=== PATIENT | female | born 1980 | race Two or more races ===

== ENCOUNTER 2019-06-10 08:26 | Emergency (ER) | payer OTHER ==
[2019-06-10 08:31] VITALS: TEMP 98.4; BMI 27.8
[2019-06-10] MEDS ORDERED: SODIUM CHLORIDE 1,000 ML IV STA (09:11)
[2019-06-10 09:49] LABS: BASO % 0.5 % (0-2.0); EOS % 0.7 % (0-4.5); HEMATOCRIT 39.9 % (32.4-45.2); LYMPH % 23.2 % (8-40); MCH 23.5 pg (25.7-33.7); MCHC 32.5 g/dl (32.0-36.0); MEAN CELL VOLUME 72.5 fl (80-96); MEAN PLT VOLUME 10.5 fl (7.5-11.1); MONO % 6.4 % (3.8-10.2); NEUT % 69.2 % (42.8-82.8); PLATELET COUNT 272 K/MM3 (134-434); RBC 5.51 M/mm3 (3.60-5.2); RDW 15.7 % (11.6-15.6)
[2019-06-10 10:02] LABS: INR 1.08 (0.83-1.09); PROTHROMBIN TIME (PATIENT) 12.7 SEC (9.7-13.0)
[2019-06-10 10:21] LABS: ALBUMIN 3.7 g/dl (3.4-5.0); ALK PHOS 118 U/L (45-117); ANION GAP 6 MMOL/L (8-16); BILIRUBIN,TOTAL 0.4 mg/dL (0.2-1); BLOOD UREA NITROGEN 10.6 mg/dL (7-18); CALCIUM 8.7 mg/dL (8.5-10.1); CHLORIDE 104 mmol/L (98-107); CO2 29 mmol/L (21-32); CREATININE 0.7 mg/dL (0.55-1.3); GLUCOSE,RANDOM 87 mg/dL (74-106); POTASSIUM 4.3 mmol/L (3.5-5.1); SGOT/AST 24 U/L (15-37); SGPT/ALT 26 U/L (13-61); SODIUM 139 mmol/L (136-145)
[2019-06-10 12:09] LABS: EPI CELLS 5.7 /HPF (0-5/HPF); HYALINE CASTS 3 /lpf (0-8); URINE APPEARANCE CLEAR; URINE BACTERIA 297.9 /hpf (NEGATIVE); URINE BILIRUBIN NEGATIVE (NEGATIVE); URINE COLOR YELLOW; URINE GLUCOSE (UA) NEGATIVE (NEGATIVE); URINE KETONE NEGATIVE (NEGATIVE); URINE LEUK ESTERASE NEGATIVE (NEGATIVE); URINE NITRITE NEGATIVE (NEGATIVE); URINE PROTEIN NEGATIVE (NEGATIVE); URINE RBC 1 /hpf (0-4); URINE UROBILINOGEN 0.2 mg/dL (0.2-1.0); URINE WBC 2 /hpf (0-5)
--- NOTE | 2019-06-10 12:09 | PDOC ---
Documentation entered by Bernardo Edwards SCRIBE, acting as scribe for Servando Ritchie MD. Servando Ritchie MD: This documentation has been prepared by the Grace gordillo Elijah, SCRIBE, under my direction and personally reviewed by me in its entirety. I confirm that the documentation accurately reflects all work, treatment, procedures, and medical decision making performed by me. History of Present Illness - General Chief Complaint: Pain Stated Complaint: ABD PAIN/Etopic Time Seen by Provider: 06/10/19 08:51 History Source: Patient Exam Limitations: No Limitations - History of Present Illness Initial Comments: 06/10/19 09:30 Patient is a 38 year old female (A1) with a significant past medical history of HTN who presents to the ED with suprapubic abdominal pain that began yesterday and associates minimal vaginal bleeding. Patient notes that she was recently seen at [facility] x2 weeks ago, when she received a US and blood work. Patient was told she had an ectopic , blood work was negative, and if she had any pain to go to the ED prompting the visit today. Denies Fever, Chills. Allergies: NKA Past History - Past Medical History Allergies/Adverse Reactions: Allergies Allergy/AdvReac Type Severity Reaction Status Date / Time No Known Allergies Allergy Verified 06/10/19 08:31 Home Medications: Ambulatory Orders Ferrous Sulfate [Feosol] 325 mg PO BID #60 tab 06/17/14 Labetalol HCl [Normodyne -] 100 mg PO BID #60 tablet 06/17/14 Asthma: No Cancer: No Cardiac Disorders: No COPD: No Diabetes: Yes HTN: No Seizures: No Thyroid Disease: No - Reproductive History (#): 4 Para: 2 Spontaneous : 1 - Suicide/Smoking/Psychosocial Hx Smoking History: Never smoked Have you smoked in the past 12 months: No Information on smoking cessation initiated: No Hx Alcohol Use: No Drug/Substance Use Hx: No Substance Use Type: None Hx Substance Use Treatment: No Review of Systems - Review of Systems Comments:: 06/10/19 09:30 CONSTITUTIONAL: No fever, no chills, no fatigue EYES: No visual changes ENT: No ear pain, no sore throat CARDIOVASCULAR: No chest pain, no palpitations RESPIRATORY: No cough, no SOB GI: +abdominal pain, no nausea, no vomiting, no constipation, no diarrhea GENITOURINARY: No dysuria, no frequency, no hematuria VAGINAL: +Some Vaginal Bleeding MUSKULOSKELETAL: No backpain, no joint pain, no myalgias SKIN: No rash NEURO: No headache *Physical Exam - Vital Signs Last Vital Signs Temp Pulse Resp BP Pulse Ox 98.4 F 75 18 159/95 100 06/10/19 08:29 06/10/19 08:29 06/10/19 08:29 06/10/19 08:29 06/10/19 08:29 - Physical Exam Comments: 06/10/19 09:30 CONSTITUTIONAL: Well-appearing; well-nourished; in no apparent distress HEAD: Normocephalic; atraumatic EYES: PERRL; EOM intact ENMT: External appears normal; normal oropharynx NECK: Supple; non-tender; no cervical lymphadenopathy CARD: Normal S1, S2; no murmurs, rubs, or gallops RESP: Normal chest excursion with respiration; breath sounds clear and equal bilaterally; no wheezes, rhonchi, or rales ABD: +Mild Suprapubic tenderness to palpation. No Rebound, No Guarding EXT: Normal ROM in all four extremities; non-tender to palpation; distal pulses intact SKIN: Warm, dry, no rash NEURO: No focal neurological deficiencies. ED Treatment Course - LABORATORY CBC & Chemistry Diagram: 06/10/19 09:20 06/10/19 09:20 - ADDITIONAL ORDERS Additional order review: Laboratory Results 06/10/19 06/10/19 06/10/19 09:20 09:20 09:20 PT with INR 12.70 INR 1.08 Sodium 139 Potassium 4.3 Chloride 104 Carbon Dioxide 29 Anion Gap 6 L BUN 10.6 Creatinine 0.7 Est GFR (CKD-EPI)AfAm 128.28 Est GFR (CKD-EPI)NonAf 110.69 Random Glucose 87 Calcium 8.7 Total Bilirubin 0.4 AST 24 ALT 26 Alkaline Phosphatase 118 H Total Protein 8.0 Albumin 3.7 Beta HCG, Quant < 1.0 Blood Type O NEGATIVE Antibody Screen Negative 06/10/19 09:20 RBC 5.51 H MCV 72.5 L MCHC 32.5 RDW 15.7 H D MPV 10.5 Neutrophils % 69.2 Lymphocytes % 23.2 D Monocytes % 6.4 Eosinophils % 0.7 Basophils % 0.5 - RADIOLOGY Radiology Studies Ordered: Category Date Time Status TRANSVAGINAL ULTRASOUND US [US] Stat Ultrasound 06/10/19 10:42 Completed - Medications Given in the ED: ED Medications Discontinued Medications Generic Name Dose Route Start Last Admin Trade Name [place]q PRN Reason Stop Dose Admin Sodium Chloride 1,000 mls @ 1,000 mls/hr 06/10/19 09:11 06/10/19 09:29 Normal Saline - IV 06/10/19 10:10 1,000 mls/hr ASDIR STA Administration Medical Decision Making - Medical Decision Making 06/10/19 12:07 Early April 2019 presents with minimal suprapubic discomfort, mild vaginal bleeding and questionable history of ectopic diagnosed 2 weeks previously at an outpatient facility. In the ER, patient is awake and alert, well-appearing, hemodynamically stable. Serial abdominal exams revealed minimal suprapubic tenderness only without guarding or rebound. Patient is noted to have beta hCG of less than 1. Transvaginal ultrasound shows an ovarian cyst and thickened endometrium of 1.3 cm but no evidence of an ectopic . No acute issues are present currently. Patient will be discharged with outpatient follow-up with [facility] as needed. *DC/Admit/Observation/Transfer Diagnosis at time of Disposition: Vaginal bleeding Abdominal pain Qualifiers: Abdominal location: unspecified location Qualified Code(s): R10.9 - Unspecified abdominal pain - Discharge Dispostion Disposition: HOME Condition at time of disposition: Stable - Referrals Referrals: Kaushik Taylor [Primary Care Provider] - Kranthi Fofana MD [Staff Physician] - - Patient Instructions Printed Discharge Instructions: DI for Abdominal Pain-Adult Print Language: ICELANDIC - Post Discharge Activity
[2019-06-10] MEDS ORDERED: ACETAMINOPHEN 325 MG TABLET (FP) PO ONE (12:12)
[2019-06-10 12:51] VITALS: BP 142/78; PULSE 78
[2019-06-10 14:50] LABS: YEAST NONE SEEN (NEGATIVE)
== END 2019-06-10 12:35 | disposition home or self-care (01) ==
LOC: JER 08:26
PROC: 3E0337Z Introduction of Electrolytic and Water Balance Substance into Peripheral Vein, Percutaneous Approach (ICD-10-PCS; principal; 2019-06-10)
DX: R10.9 Unspecified abdominal pain (principal); E11.9 Type 2 diabetes mellitus without complications
CPT/HCPCS: 36415; 76830-TC; 80053; 81003; 84702; 85025; 85610; 86850; 86900; 86901; 96360; 99284-25; J7030